=== PATIENT | female | born 1990 | race African-American/Black ===

== ENCOUNTER 2016-05-24 07:58 | Inpatient (IN) | payer BC ==
[~2016-05-24] VITALS: Ht 172.7 cm; Wt 133.9 kg
[2016-05-24] VITALS (7 sets, daily range): BP systolic 119–162; BP diastolic 59–94; PULSE 93–116; RESP 18–27; TEMP 97.8–98.6; O2SAT 97–100
[2016-05-24 08:42] LABS: AUTOMATED NEUTROPHIL # 12.7 TH/MM3 (1.8-7.7); BASOPHIL # 0.1 TH/MM3 (0-0.2); BASOPHIL % 0.5 % (0.0-2.0); EOSINOPHIL % 0.1 % (0.0-4.0); HEMATOCRIT 44.3 % (35.0-46.0); HEMO FLAGS DIFF FINAL; LYMPH % 16.1 % (9.0-44.0); LYMPHOCYTE # 2.6 TH/MM3 (1.0-4.8); MEAN CORPUSCULAR HEMOGLOBIN 28.1 PG (27.0-34.0); MEAN CORPUSCULAR HGB CONC 31.9 % (32.0-36.0); MONO % 4.5 % (0.0-8.0); NEUT % 78.8 % (16.0-70.0); PLATELET COUNT 459 TH/MM3 (150-450); RED BLOOD COUNT 5.03 MIL/MM3 (4.00-5.30); RED CELL DISTRIBUTION WIDTH 13.7 % (11.6-17.2); WHITE BLOOD COUNT 16.1 TH/MM3 (4.0-11.0)
[2016-05-24 08:54] LABS: BLOOD, URINE NEG (NEG); GLUCOSE,URINE 1000 mg/dL (NEG); KETONE, URINE 150 mg/dL (NEG); NITRITE,URINE NEG (NEG); SQUAMOUS EPITHELIAL CELL URINE <1 /hpf (0-5)
[2016-05-24 08:55] LABS: COMMENT (UR) CULT NOT INDICATED; CULTURE IF INDICATED CULT NOT INDICATED; URINE COLOR LIGHT-YELLOW (YELLW/STRAW)
[2016-05-24] MEDS ORDERED: DEXT 5%-NACL 0.9% 1000 ML INJ 1,000 ML IV SCH (08:57)
[2016-05-24] MEDS ORDERED: SODIUM CHLOR 0.9% 1000 ML INJ 1,000 ML IV SCH (08:57)
[2016-05-24] MEDS ORDERED: INSULIN HUMAN REGULAR 1,000 UNITS/10 ML VIAL IV PUSH ONE (09:00)
[2016-05-24] MEDS ORDERED: POTASSIUM CHLOR 20 MEQ PREMIX 100 ML IV PRN ×3 (09:00)
[2016-05-24] MEDS ORDERED: SODIUM CHLOR 0.9% 1000 ML INJ 1,000 ML IV ONE (09:00)
[2016-05-24] MEDS ORDERED: SODIUM BICARBONATE 8.4% SOLN 50 MEQ/50 ML VIAL IV PRN ×2 (09:00)
[2016-05-24] MEDS ORDERED: SODIUM PHOSPHATE INJ 15 MMOL in SODIUM CHLORIDE 0.9% INJ 100 ML IV PRN (09:00)
[2016-05-24 09:05] LABS: BETA-HYDROXYBUTYRATE 5.91 MMOL/L (0.00-0.39); BICARBONATE 10.6 MEQ/L (21.0-32.0); POTASSIUM 4.8 MEQ/L (3.5-5.1)
--- NOTE | 2016-05-24 09:20 | PD ---
HPI Chief Complaint: GI Complaint Time Seen by Provider: 08:50 Travel History International Travel<30 days: No Contact w/Intl Traveler<30days: No Traveled to known affect area: No History of Present Illness HPI This is a 25-year-old female with a history of type 1 insulin-dependent diabetes , and presents today with complaints of intractable nausea vomiting since yesterday. The patient states she ran out of her insolent 2 days ago. She states shortly thereafter she began having acute nausea vomiting. She denies any fevers, chills. 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 Patient is complaining of being thirsty. The patient states she was admitted in [place] last month for 3 days for DKA. FORMERLY [facility] Past Medical History High Cholesterol: Yes Diabetes: Yes Patient Takes Glucophage: No Hypertension: Yes ?: Unknown Past Surgical History Surgical History: No Previous Surgery Social History Alcohol Use: No Tobacco Use: No Substance Use: No Allergies-Medications (Allergen,Severity, Reaction): Coded Allergies: Amoxicillin (Verified Allergy, Unknown, 05/24/16) Reported Meds & Prescriptions Reported Meds & Active Scripts Active Review of Systems Except as stated in HPI: all other systems reviewed are Neg General / Constitutional: No: Fever, Chills Eyes: Positive: Blurred Vision, No: Diploplia HENT: Positive: Headaches (mild), Lightheadedness Cardiovascular: No: Chest Pain or Discomfort, Palpitations Respiratory: No: Cough, Shortness of Breath Gastrointestinal: Positive: Nausea, Vomiting, Abdominal Pain (cramping), No: Diarrhea Genitourinary: Positive: Frequency, No: Dysuria Musculoskeletal: Positive: Weakness (generalized) Neurologic: Positive: Weakness, Dizziness, Headache (mild), No: Change in Mentation Endocrine: Positive: Polyuria, Other (increased thirst) Physical Exam Narrative GENERAL: Well-developed well-nourished female who is actively vomiting when I entered the room. SKIN: Focused skin assessment warm/dry. HEAD: Atraumatic. Normocephalic. EYES: No scleral icterus. No injection or drainage. ENT: No nasal bleeding or discharge. Mucous membranes pink and moist. NECK: Trachea midline. Supple CARDIOVASCULAR: Tachycardic with 3/6 systolic murmur heard at the left sternal border. RESPIRATORY: No accessory muscle use. Clear to auscultation. Breath sounds equal bilaterally. GASTROINTESTINAL: Abdomen soft, non-tender, nondistended. Obese. MUSCULOSKELETAL: No obvious deformities. No cyanosis. No edema. NEUROLOGICAL: Awake and alert. No obvious cranial nerve deficits. Motor grossly within normal limits. Normal speech. Data Data Last Documented VS Orders Blood Glucose (05/24/16 08:07) Urinalysis - C+S If Indicated (05/24/16 08:07) Electrocardiogram (05/24/16 ) Complete Blood Count With Diff (05/24/16 08:07) Basic Metabolic Panel (Bmp) (05/24/16 08:07) Beta Hydroxybutyrate (Acetone) (05/24/16 08:07) Lactic Acid (05/24/16 08:07) Sodium Chlor 0.9% 1000 Ml Inj (Ns 1000 M (05/24/16 09:00) ^ Insulin Infusion (05/24/16 08:57) Diet Npo (05/24/16 Breakfast) Sodium Chlor 0.9% 1000 Ml Inj (Ns 1000 M (05/24/16 08:57) Dext 5%-Nacl 0.9% 1000 Ml Inj (D5w-Ns 10 (05/24/16 08:57) Insulin Human Regular Inj (Novolin R Inj (05/24/16 09:00) Insulin Regular (Iv Infusion) (Novolin R (05/24/16 09:00) Potassium Chlor 20 Meq Premix (Kcl 20 Me (05/24/16 09:00) Potassium Chlor 20 Meq Premix (Kcl 20 Me (05/24/16 09:00) Potassium Chlor 20 Meq Premix (Kcl 20 Me (05/24/16 09:00) Potassium Chlor 20 Meq Premix (Kcl 20 Me (05/24/16 09:00) Sodium Bicarbonate 8.4% Inj (Sodium Bica (05/24/16 09:00) Sodium Bicarbonate 8.4% Inj (Sodium Bica (05/24/16 09:00) Sodium Phosphate Inj (Sodium Phosphate I (05/24/16 09:00) Hemoglobin (Hgb) A1c (05/24/16 08:57) Basic Metabolic Panel (Bmp) (05/24/16 13:57) Basic Metabolic Panel (Bmp) (05/24/16 19:57) Basic Metabolic Panel (Bmp) (05/25/16 01:57) Basic Metabolic Panel (Bmp) (05/25/16 07:57) Magnesium (Mg) (05/24/16 13:57) Magnesium (Mg) (05/24/16 19:57) Magnesium (Mg) (05/25/16 01:57) Magnesium (Mg) (05/25/16 07:57) Phosphorus (Po4) (05/24/16 13:57) Phosphorus (Po4) (05/24/16 19:57) Phosphorus (Po4) (05/25/16 01:57) Phosphorus (Po4) (05/25/16 07:57) Beta Hydroxybutyrate (Acetone) (05/24/16 19:57) Beta Hydroxybutyrate (Acetone) (05/25/16 07:57) Admit Order (Ed Use Only) (05/24/16 09:46) Labs MDM Medical Decision Making Medical Screen Exam Complete: Yes Emergency Medical Condition: Yes Medical Record Reviewed: No (there are no old records to evaluate. This appears to be the patient's first visit) Differential Diagnosis DKA versus nonketotic hyperosmolar acidosis versus metabolic drainage. Narrative Course This is a 25-year-old female who presents with nausea vomiting 2 days. The patient reports that she has been out of her insolent for 2 days. The patient is in obvious DKA. DKA protocol was initiated. The case was discussed with Dr. Burks, on-call support analyst, who is agreed to admit the patient under his service. The patient was requesting to drink liquids which I told her we would hold off until we got her sugar normalized. She was amenable to the plan. Diagnosis Primary Impression: Diabetic ketoacidosis Additional Impression: Diabetes mellitus type I Admitting Information Admitting Physician Requests: Admit Garrett Angel MD May 24, 2016 09:20 Mean Platelet Volume 8.6 FL Neutrophils (%) (Auto) 78.8 % Lymphocytes (%) (Auto) 16.1 % Monocytes (%) (Auto) 4.5 % Eosinophils (%) (Auto) 0.1 % Basophils (%) (Auto) 0.5 % Neutrophils # (Auto) 12.7 TH/MM3 Lymphocytes # (Auto) 2.6 TH/MM3 Monocytes # (Auto) 0.7 TH/MM3 Eosinophils # (Auto) 0.0 TH/MM3 Basophils # (Auto) 0.1 TH/MM3 CBC Comment DIFF FINAL Differential Comment Urine Color LIGHT-YELLOW Urine Turbidity CLEAR Urine pH 5.0 Urine Specific [place] 1.024 Urine Protein NEG mg/dL Urine Glucose (UA) 1000 mg/dL Urine Ketones 150 mg/dL Urine Occult Blood NEG Urine Nitrite NEG Urine Bilirubin NEG Urine Urobilinogen LESS THAN 2.0 MG/DL Urine Leukocyte Esterase NEG Urine WBC LESS THAN 1 /hpf Urine Squamous Epithelial <1 /hpf Cells Microscopic Urinalysis Comment CULT NOT INDICATED Sodium Level 131 MEQ/L Potassium Level 4.8 MEQ/L Chloride Level 99 MEQ/L Carbon Dioxide Level 10.6 MEQ/L Anion Gap 21 MEQ/L Blood Urea Nitrogen 15 MG/DL Creatinine 1.10 MG/DL Estimat Glomerular Filtration 61 ML/MIN Rate Random Glucose 700 MG/DL Calcium Level 9.7 MG/DL B-Hydroxybutyrate 5.91 MMOL/L MDM Medical Decision Making Medical Screen Exam Complete: Yes Emergency Medical Condition: Yes Medical Record Reviewed: No (there are no old records to evaluate. This appears to be the patient's first visit) Differential Diagnosis DKA versus nonketotic hyperosmolar acidosis versus metabolic drainage. Garrett Angel MD May 24, 2016 09:20
[2016-05-24] MEDS: POTASSIUM CHLOR 20 MEQ PREMIX 100 ML IV PRN ×2 (09:30→10:27)
[2016-05-24] MEDS ORDERED: HYDROmorphone HCL PF 1 MG/ML VIAL IVS ONE (10:45)
[2016-05-24] MEDS ORDERED: ONDANSETRON HCL 4 MG/2 ML VIAL IVP ONE (10:45)
[2016-05-24] MEDS: INSULIN REGULAR (IV INFUSION) 100 UNITS in SODIUM CHLORIDE 0.9% INJ 99 ML IV SCH ×2 (11:22→19:35)
[2016-05-24 13:58] LABS: BICARBONATE 14.4 MEQ/L (21.0-32.0); MAGNESIUM 2.6 MG/DL (1.5-2.5); POTASSIUM 4.6 MEQ/L (3.5-5.1)
[2016-05-24] MEDS ORDERED: CHLORHEXIDINE GLUCONATE 2 % 1 PACK (2 CLOTHS) TOP PRN (14:00)
[2016-05-24] MEDS ORDERED: MISCELLANEOUS NURSING INFORMATION XX SCH (14:00)
--- NOTE | 2016-05-24 15:01 | MH ---
cc: ISRAEL MENG M.D. DATE OF ADMISSION: 05/24/2016 DATE OF : 1990 HISTORY OF PRESENT ILLNESS The patient is a 25-year-old with a history of type 1 diabetes mellitus diagnosed one year ago on Levemir and NovoLog insulin at home. She presented to [facility] ED with complaints of intractable nausea and vomiting. In addition, she reports polyuria, polydipsia and feeling light-headed. She ran out of her medications and the last time she took insulin was a couple of days ago. She was recently discharged from hospital after she was admitted for DKA. She denies any symptoms of fever, chills, cough or any constitutional symptoms. On arrival to the ED she was tachycardic with a heart rate of 116, blood pressure 162/80 and her laboratory data was compatible with DKA. Her blood sugar was 700 on a BMP. In addition the patient had an anion gap of 21 and beta-hydroxybutyrate of 5.91. She was given Novolin regular insulin 14 units IV push and one liter bolus of normal saline, and started on an insulin drip per protocol. A repeat BMP from 1300 showed improvement with blood sugar of 379 and anion gap 17. The patient is awake and alert, lying in bed in no acute respiratory distress. She is on room air oxygen with saturation 98%. PAST MEDICAL HISTORY Type 1 diabetes mellitus diagnosed one year ago. PAST SURGICAL HISTORY Tooth extraction. ALLERGIES AMOXICILLIN; SIDE EFFECTS INCLUDE SKIN SHEDDING. SOCIAL HISTORY Non-smoker, non-drinker. FAMILY HISTORY Diabetes mellitus and hypertension run in the family. MEDICATIONS Reported medications are Novolin and Levemir insulin. REVIEW OF SYSTEMS As per HPI. The rest of the review of systems is unremarkable. PHYSICAL EXAMINATION GENERAL: A 25-year-old female lying in bed in no acute distress. VITAL SIGNS: Temperature 97.9, pulse 103, blood pressure 127/59, respiratory rate 18. Saturation 98% on room air. HEENT: Atraumatic, normocephalic. Pupils equal, round and reactive to light and accommodation. Extraocular muscles intact. Conjunctiva pink. Non-icteric sclera. Oral mucosa within normal. NECK: Supple. No JVD, adenopathy or thyromegaly. Trachea midline. CARDIOVASCULAR: Tachycardic. Normal S1, S2. No murmurs, rubs or gallops noted. PULMONARY: Bilateral equal entry. No rales or wheezing. ABDOMEN: Soft, obese, nontender, no distention. Positive bowel sounds. EXTREMITIES: No clubbing, cyanosis or edema. NEUROLOGIC: No focal sensory deficits. LABORATORY DATA Sodium 141, potassium 4.1, chloride 110, CO2 14, BUN 14, creatinine 0.96, anion gap 17, glucose 379, magnesium 2.6, phosphorous 2.7, calcium 9.2, WBC 16.1, hemoglobin 14, hematocrit 44, platelet count 459. Beta-hydroxybutyrate 5.91. Urinalysis negative for leukocyte esterase, negative for nitrite. IMPRESSION 1. Diabetic ketoacidosis. 2. Anion gap metabolic acidosis. 3. Mild lactic acidemia. 4. Leukocytosis, likely stress-related. 5. History of diabetes mellitus. 6. Morbid obesity. RECOMMENDATIONS 1. Monitor neuro status. The patient is awake and alert. 2. Oxygen p.r.n. to maintain sats above 92%. 3. Will obtain a baseline chest x-ray. 4. Monitor heart rate and blood pressure and maintain MAP greater than 65 mmHg. 5. Recheck lactic acid level and continue with IV hydration. 6. Monitor renal function and electrolytes closely. Will check a BMP, magnesium and phosphorus q.6h., and beta-hydroxybutyrate q.12h. per protocol. 7. Continue with IV fluids. The patient is currently on NS at 250 mL an hour. Once her blood sugar is less than 250 will start D5 NS at 200 an hour per protocol. 8. Keep n.p.o. for now. 9. Monitor CBC and for signs of infections which include fever and WBC. 10.Continue with insulin drip per DKA protocol. 11.No indications for GI prophylaxis. 12.DVT prophylaxis with SCDs and heparin subcu. 13.Further recommendations will be based on the hospital course. Level 4. MD ANDRES Alvares/GABE /2:20 PM /2:48 PM
--- NOTE | 2016-05-24 16:46 | RADRPT ---
EXAM DATE/TIME: 05/24/2016 14:26 [place] COMPARISON: No previous studies available for comparison. INDICATIONS : Patient had high blood sugar level this morning. MEDICAL HISTORY : Diabetes mellitus type II. SURGICAL HISTORY : None. ENCOUNTER: Initial ACUITY: 1 day PAIN SCORE: 0/10 LOCATION: Bilateral chest FINDINGS: Single AP view of the chest. The lungs are clear. Cardiomediastinal silhouette within normal limits. No evidence of pleural effusion or pneumothorax. CONCLUSION: No acute cardiopulmonary disease identified. Raul Hurley MD on May 24, 2016 at 16:44 Board Certified Radiologist. This report was verified electronically.
[2016-05-24 17:05] LABS: BETA HCG QUANT LESS THAN 1 MIU/ML (0-5)
[2016-05-24] MEDS: HEPARIN SODIUM - SQ 10,000 UNITS/ML VIAL SQ SCH (17:07)
[2016-05-24 18:08] LABS: BICARBONATE 20.6 MEQ/L (21.0-32.0); POTASSIUM 4.1 MEQ/L (3.5-5.1)
[2016-05-24] MEDS ORDERED: GLUCAGON 1 MG/ML VIAL OTHER PRN ×4 (19:00)
[2016-05-24] MEDS ORDERED: DEXTROSE 50% IN WATER 50 ML VIAL(D50) IV PUSH PRN ×4 (19:00)
[2016-05-24] MEDS ORDERED: DC previous DKA orders (HMC 1917) XX ONE (19:00)
[2016-05-24] MEDS: INSULIN DETEMIR 100 UNITS/ML VIAL SQ SCH (19:30)
[2016-05-24] MEDS: INSULIN NovoLIN REGULAR SUPPLEMENTAL SCALE SQ SCH (21:00)
[2016-05-24 21:19] LABS: ANION GAP 12 MEQ/L (5-15); BETA-HYDROXYBUTYRATE 2.98 MMOL/L (0.00-0.39); BICARBONATE 20.1 MEQ/L (21.0-32.0); BLOOD UREA NITROGEN 9 MG/DL (7-18); CHLORIDE 114 MEQ/L (98-107); GLOMERULAR FILTRATION RATE 88 ML/MIN (>89); MAGNESIUM 2.4 MG/DL (1.5-2.5); POTASSIUM 3.6 MEQ/L (3.5-5.1); SODIUM (NA) 146 MEQ/L (136-145)
[2016-05-24] MEDS ORDERED: DC Insulin drip 2 hrs post basal insulin dose XX ONE (21:30)
[2016-05-24 22:09] LABS: HEMOGLOBIN A1a 1.3 %; HEMOGLOBIN A1b 1.6 %; HEMOGLOBIN Ao 73.7 %; HEMOGLOBIN F 2.2 %; HEMOGLOBIN LA1C 2.2 %; HEMOGLOBIN P3 5.9 %
--- NOTE | 2016-05-24 22:43 | EKG ---
Date Performed: 05/24/2016 Time Performed: 09:26:06 PTAGE: 25 years EKG: SINUS TACHYCARDIA POSSIBLE LEFT ATRIAL ENLARGEMENT ABNORMAL RHYTHM ECG NO PREVIOUS TRACING DOCTOR: Richard Garcia Interpretating Date/Time 05/24/2016 22:42:33
[2016-05-25] VITALS (12 sets, daily range): BP systolic 109–133; BP diastolic 55–96; PULSE 82–100; RESP 15–24; TEMP 98.3–98.9; O2SAT 96–100
[2016-05-25 02:02] LABS: BICARBONATE 16.2 MEQ/L (21.0-32.0); MAGNESIUM 2.1 MG/DL (1.5-2.5); POTASSIUM 4.2 MEQ/L (3.5-5.1)
[2016-05-25] MEDS: CHLORHEXIDINE GLUCONATE 2 % 1 PACK (2 CLOTHS) TOP SCH (04:00)
[2016-05-25 04:28] LABS: AUTOMATED NEUTROPHIL # 11.6 TH/MM3 (1.8-7.7); BASOPHIL # 0.1 TH/MM3 (0-0.2); BASOPHIL % 0.5 % (0.0-2.0); EOSINOPHIL % 0.2 % (0.0-4.0); HEMATOCRIT 38.7 % (35.0-46.0); HEMO FLAGS DIFF FINAL; LYMPH % 23.1 % (9.0-44.0); LYMPHOCYTE # 3.8 TH/MM3 (1.0-4.8); MEAN CELL VOLUME 85.6 FL (80.0-100.0); MEAN CORPUSCULAR HEMOGLOBIN 27.3 PG (27.0-34.0); MEAN CORPUSCULAR HGB CONC 31.9 % (32.0-36.0); MONO % 6.7 % (0.0-8.0); NEUT % 69.5 % (16.0-70.0); PLATELET COUNT 358 TH/MM3 (150-450); RED BLOOD COUNT 4.52 MIL/MM3 (4.00-5.30); RED CELL DISTRIBUTION WIDTH 13.7 % (11.6-17.2); WHITE BLOOD COUNT 16.6 TH/MM3 (4.0-11.0)
[2016-05-25 04:48] LABS: BICARBONATE 16.8 MEQ/L (21.0-32.0); POTASSIUM 3.9 MEQ/L (3.5-5.1)
[2016-05-25] MEDS: HEPARIN SODIUM - SQ 10,000 UNITS/ML VIAL SQ SCH ×2 (05:21→18:11)
[2016-05-25] MEDS: INSULIN NovoLIN REGULAR SUPPLEMENTAL SCALE SQ SCH (05:22)
[2016-05-25] MEDS ORDERED: GLUCAGON 1 MG/ML VIAL OTHER PRN (06:00)
[2016-05-25] MEDS ORDERED: DEXTROSE 50% IN WATER 50 ML VIAL(D50) IV PUSH PRN (06:00)
[2016-05-25] MEDS: MEDIUM DOSE INSULIN NOVOLIN REGULAR SUPPLEMENTAL SCALE SQ SCH ×4 (08:00→20:00)
[2016-05-25] MEDS: INSULIN DETEMIR 100 UNITS/ML VIAL SQ SCH ×2 (08:08→21:33)
[2016-05-25 10:26] LABS: BETA-HYDROXYBUTYRATE 1.83 MMOL/L (0.00-0.39); BICARBONATE 18.6 MEQ/L (21.0-32.0)
[2016-05-25] MEDS ORDERED: ICU - POTASSIUM PHOSPHATE MONOBASIC 500 MG TAB PO PRN (13:15)
[2016-05-25] MEDS ORDERED: ICU - SODIUM PHOSPHATE 30 MMOL/NS 250 ML IV PRN ×2 (13:15)
[2016-05-25] MEDS ORDERED: ICU - MAGNESIUM SULFATE 2 GM/NS 100 ML IV PRN ×2 (13:15)
[2016-05-25] MEDS ORDERED: ICU - POTASSIUM CHLORIDE/AQUEOUS SOLN 40 MEQ/100 ML IVPB IV PRN (13:15)
[2016-05-25] MEDS ORDERED: ICU - MAGNESIUM SULFATE 4 GM/NS 100 ML IV PRN ×2 (13:15)
[2016-05-25] MEDS ORDERED: ICU - POTASSIUM PHOSPHATE 30 MMOL/NS 250 ML IV PRN ×2 (13:15)
[2016-05-25] MEDS ORDERED: ICU - MAGNESIUM OXIDE 400 MG TAB PO PRN (13:15)
--- NOTE | 2016-05-25 13:28 | HHI.CCPN ---
Subjective Remarks/Hospital Course The patient is a 25-year-old with a history of type 1 diabetes mellitus diagnosed one year ago on Levemir, NovoLog and the toes at home she presented to [facility] ED with complaints of intractable nausea and vomiting. In addition she reports polyuria, polydipsia and feeling lightheaded. She ran out of her medications in the last time she took insulin was a couple of days ago. She was recently discharged from the hospital after she was admitted for DKA. She denies any symptomatology of fevers chills or cough or any constitutional symptoms. On arrival to the ED she was tachycardic with a heart rate of 116, blood pressure 162/80 and her laboratory data was compatible with DKA. Her blood sugar was 700 on the MR PE. In addition the patient had an anion gap of 21 and a beta hydroxybutyrate of 5.91. She was given normal and regular insulin 14 units IV push and a 1 L bolus of normal saline is started on insulin drip per protocol. Repeat BMP from 1300 showed improvement with blood sugar of 379 and anion gap of 17. The patient is awake and alert lying in the bed no acute respiratory distress. On room air she is in no apparent distress. Subjective 05/25/2016-The patient is in no apparent distress the patient had been advanced to Levemir 20 units daily will alternate that with twice a day coverage and resume her home medications. The patient is currently tolerating a by mouth diet, and anion gap has closed. Objective Vital Signs Date Time Temp Pulse Resp B/P Pulse Ox O2 Delivery O2 Flow Rate FiO2 05/25/16 08:00 87 05/25/16 08:00 98.7 15 121/56 97 05/24/16 12:44 Room Air Intake and Output 05/24/16 05/24/16 05/25/16 08:00 16:00 00:00 Intake Total 630 ml Balance 630 ml Result Diagram: 05/25/16 0306 05/25/16 0822 Imaging Last Impressions Chest X-Ray 05/24/16 0000 Signed Impressions: Service Date/Time: Tuesday, May 24, 2016 14:26 - CONCLUSION: No acute cardiopulmonary disease identified. Raul Hurley MD Objective Remarks GENERAL: Morbidly obese young female resting comfortably in no apparent respiratory distress SKIN: Warm and dry. HEAD: Atraumatic. Normocephalic. EYES: Pupils equal and round. No scleral icterus. No injection or drainage. ENT: No nasal bleeding or discharge. Mucous membranes pink and moist. Uvula midline NECK: Trachea midline. Unable to assess JVD, secondary to body habitus. CARDIOVASCULAR: Normal rate, regular rhythm. No murmurs rubs or gallops RESPIRATORY: No accessory muscle use. Clear to auscultation. Breath sounds equal bilaterally. GASTROINTESTINAL: Abdomen soft, non-tender, nondistended. No guarding. MUSCULOSKELETAL: Extremities without clubbing, cyanosis, or edema. No obvious deformities. NEUROLOGICAL: Awake and alert. RASS 0. No gross focal/sensory deficits. Follows commands in all 4 extremities. A/P Assessment and Plan Plan by systems: Neurologic: Noncompliance to medication regimen Respiratory: No acute issues Incentive spirometry Cardiovascular: Tachycardia-resolved Maintain MAP greater than 65 mmHg Renal: No acute issues Monitor BMP -- Strict I/Os FEN/GI: Nausea and vomiting-resolved Morbid obesity Hypokalemia Hypophosphatemia Replete electrolytes per ICU protocol Diabetic diet Heme/ID: Monitor CBC Endocrine: DKA-resolved Type 1 diabetes mellitus Patient counseled on importance of adherence medication regimen Currently on Levemir 20 mg daily with sliding scale insulin every 4 hours, will increase Levemir to 20 mg twice a day -- SSI Prophylaxis: GI Prophylaxis Protonix DVT Prophylaxis -- SCDs Lines: Peripheral IVs 2. Central line if indicated Dispo: Level 2 Plan transfer to hospitalist, plan transfer to floor. Physician Keisha Castaneda MD May 25, 2016 13:28
[2016-05-25] MEDS ORDERED: VICT18IN SQ (18:22)
[2016-05-25] MEDS ORDERED: LEVEMIR SQ (18:22)
[2016-05-25] MEDS ORDERED: LISI-515 PO (18:22)
[2016-05-25] MEDS ORDERED: SIMV20TA PO (18:22)
[2016-05-25] MEDS ORDERED: NOVOLOGP2 SQ ×2 (18:22)
[2016-05-25] MEDS ORDERED: HYDR1SOL3 PO (18:24)
[2016-05-26] VITALS (8 sets, daily range): BP systolic 102–134; BP diastolic 57–84; PULSE 72–85; RESP 14–22; TEMP 97.8–98.7; O2SAT 85–100
[2016-05-26] MEDS: CHLORHEXIDINE GLUCONATE 2 % 1 PACK (2 CLOTHS) TOP SCH (04:00)
[2016-05-26] MEDS: MEDIUM DOSE INSULIN NOVOLIN REGULAR SUPPLEMENTAL SCALE SQ SCH ×5 (04:00→20:00)
[2016-05-26] MEDS: HEPARIN SODIUM - SQ 10,000 UNITS/ML VIAL SQ SCH ×2 (06:45→18:00)
[2016-05-26] MEDS: INSULIN DETEMIR 100 UNITS/ML VIAL SQ SCH ×2 (09:02→20:18)
[2016-05-26] MEDS ORDERED: INSULIN DETEMIR 100 UNITS/ML VIAL SQ ONE ×2 (09:30→15:30)
--- NOTE | 2016-05-26 10:20 | HHI.PR ---
Subjective Remarks Change Control Manager Notes: The patient is a 25-year-old with a history of type 1 diabetes mellitus diagnosed one year ago on Levemir, NovoLog and the toes at home she presented to [facility] ED with complaints of intractable nausea and vomiting. In addition she reports polyuria, polydipsia and feeling lightheaded. She ran out of her medications in the last time she took insulin was a couple of days ago. She was recently discharged from the hospital after she was admitted for DKA. She denies any symptomatology of fevers chills or cough or any constitutional symptoms. On arrival to the ED she was tachycardic with a heart rate of 116, blood pressure 162/80 and her laboratory data was compatible with DKA. Her blood sugar was 700 on the MR PE. In addition the patient had an anion gap of 21 and a beta hydroxybutyrate of 5.91. She was given normal and regular insulin 14 units IV push and a 1 L bolus of normal saline is started on insulin drip per protocol. Repeat BMP from 1300 showed improvement with blood sugar of 379 and anion gap of 17. The patient is awake and alert lying in the bed no acute respiratory distress. On room air she is in no apparent distress. Subjective 05/25/2016-The patient is in no apparent distress the patient had been advanced to Levemir 20 units daily will alternate that with twice a day coverage and resume her home medications. The patient is currently tolerating a by mouth diet, and anion gap has closed. Hospitalist Note: 05/26/2016- Seen in her bedroom early in am discussed with nurse Miss Khadra Urias. patient stable increased dose of Levemir initially to 40 units BID then given 30 units more in the afternoon her blood sugar is uncontrolled over 300. No nausea, vomit or diarrhea. Objective Vital Signs Date Time Temp Pulse Resp B/P Pulse Ox O2 Delivery O2 Flow Rate FiO2 05/26/16 06:00 78 05/26/16 04:00 80 05/26/16 04:00 97.8 77 15 134/77 100 05/26/16 02:00 77 05/26/16 00:00 72 05/26/16 00:00 98.0 85 22 133/84 85 05/25/16 22:00 87 05/25/16 20:00 98.3 87 19 124/78 99 05/25/16 18:00 100 05/25/16 16:00 98.7 85 19 123/57 99 05/25/16 16:00 85 05/25/16 14:00 98 05/25/16 12:00 98.7 82 21 109/55 100 I/O 05/25/16 05/25/16 05/25/16 05/26/16 05/26/16 05/26/16 07:00 15:00 23:00 07:00 15:00 23:00 Intake Total 480 ml 1300 ml 350 ml 350 ml Output Total 1000 ml 1100 ml 1 ml Balance 480 ml 300 ml -750 ml 349 ml Intake Oral 480 ml 1300 ml 350 ml 350 ml IV Total 0 ml Output Urine Total 1000 ml 1100 ml Stool Total 1 ml # Voids 1 2 1 # Bowel Movements 1 0 0 Result Diagram: 05/25/16 0306 05/25/16 0822 Imaging Last Impressions Chest X-Ray 05/24/16 0000 Signed Impressions: Service Date/Time: Tuesday, May 24, 2016 14:26 - CONCLUSION: No acute cardiopulmonary disease identified. Raul Hurley MD Procedures No procedures performed. Other Results Laboratory Tests Test 05/24/16 05/24/16 05/24/16 05/24/16 08:20 13:05 14:28 15:00 Urine Color LIGHT-YELLOW Urine Turbidity CLEAR Urine pH 5.0 Urine Specific [place] 1.024 Urine Protein NEG mg/dL Urine Glucose (UA) 1000 mg/dL Urine Ketones 150 mg/dL Urine Occult Blood NEG Urine Nitrite NEG Urine Bilirubin NEG Urine Urobilinogen LESS THAN 2.0 MG/DL Urine Leukocyte Esterase NEG Urine WBC LESS THAN 1 /hpf Urine Squamous Epithelial <1 /hpf Cells Microscopic Urinalysis Comment CULT NOT INDICATED Human Chorionic Gonadotropin, LESS THAN 1 Quant MIU/ML Lactic Acid Level 2.2 mmol/L Nasal Screen MRSA (PCR) NEGATIVE Test 05/24/16 05/25/16 05/25/16 05/25/16 20:24 03:06 08:22 22:16 Hemoglobin A1c 13.0 % White Blood Count 16.6 TH/MM3 Red Blood Count 4.52 MIL/MM3 Hemoglobin 12.4 GM/DL Hematocrit 38.7 % Mean Corpuscular Volume 85.6 FL Mean Corpuscular Hemoglobin 27.3 PG Mean Corpuscular Hemoglobin 31.9 % Concent Red Cell Distribution Width 13.7 % Platelet Count 358 TH/MM3 Mean Platelet Volume 8.5 FL Neutrophils (%) (Auto) 69.5 % Lymphocytes (%) (Auto) 23.1 % Monocytes (%) (Auto) 6.7 % Eosinophils (%) (Auto) 0.2 % Basophils (%) (Auto) 0.5 % Neutrophils # (Auto) 11.6 TH/MM3 Lymphocytes # (Auto) 3.8 TH/MM3 Monocytes # (Auto) 1.1 TH/MM3 Eosinophils # (Auto) 0.0 TH/MM3 Basophils # (Auto) 0.1 TH/MM3 CBC Comment DIFF FINAL Differential Comment Sodium Level 140 MEQ/L Potassium Level 4.0 MEQ/L Chloride Level 110 MEQ/L Carbon Dioxide Level 18.6 MEQ/L Anion Gap 11 MEQ/L Blood Urea Nitrogen 7 MG/DL Creatinine 1.03 MG/DL Estimat Glomerular Filtration 79 ML/MIN Rate Random Glucose 288 MG/DL Calcium Level 8.7 MG/DL Magnesium Level 2.0 MG/DL B-Hydroxybutyrate 1.83 MMOL/L Phosphorus Level 2.5 MG/DL Objective Remarks GENERAL: Morbidly obese patient, no acute distress. SKIN: Warm and dry. HEAD: Atraumatic. Normocephalic. EYES: Pupils equal and round. No scleral icterus. No injection or drainage. ENT: No nasal bleeding or discharge. Mucous membranes pink and moist. Uvula midline NECK: Trachea midline. Unable to assess JVD, secondary to body habitus. CARDIOVASCULAR: Normal rate, regular rhythm. No murmurs rubs or gallops RESPIRATORY: No accessory muscle use. Clear to auscultation. Breath sounds equal bilaterally. GASTROINTESTINAL: Abdomen soft, non-tender, nondistended. No guarding. MUSCULOSKELETAL: Extremities without clubbing, cyanosis, or edema. No obvious deformities. NEUROLOGICAL: Awake and alert and oriented x 3. Medications and IVs Current Medications Medications (Trade) Dose Ordered Sig/[place] Route Start Time Stop Time Status Last Admin (Heparin Inj) 5,000 units Q12H SQ 05/24/16 18:00 05/26/16 06:45 Miscellaneous Information 1 Q361D XX 05/24/16 14:00 (Chlorhexidine 2% Cloth) 3 pack Taper DAILY@04 TOP 05/25/16 04:00 05/21/17 03:59 05/26/16 04:00 (Chlorhexidine 2% Cloth) 3 pack UNSCH PRN TOP 05/24/16 14:00 (D50w (Vial) Inj) 25 ml UNSCH PRN IV PUSH 05/25/16 06:00 (Glucagon Inj) 1 mg UNSCH PRN OTHER 05/25/16 06:00 Insulin Human Regular 1 1 Q4HR SQ 05/25/16 08:00 05/26/16 08:00 Potassium Chloride 100 ml @ 25 mls/hr UNSCH PRN IV 05/25/16 13:15 Potassium Chloride 100 ml @ 50 mls/hr UNSCH PRN IV 05/25/16 13:15 Magnesium Sulfate 4 gm/Sodium Chloride 108 ml @ 54 mls/hr UNSCH PRN IV 05/25/16 13:15 (Magnesium Sulfate Inj/NS Inj) 104 ml @ 52 mls/hr UNSCH PRN IV 05/25/16 13:15 Magnesium Oxide 800 mg 800 mg UNSCH PRN PO 05/25/16 13:15 (Sodium Phosphate Inj/NS 250 ml Inj) 260 ml @ 43.333 mls/ hr UNSCH PRN IV 05/25/16 13:15 Potassium Phosphate 2000 mg 2,000 mg UNSCH PRN PO 05/25/16 13:15 05/25/16 18:29 (Potassium Phosphate Inj/NS 250 ml Inj) 260 ml @ 43.333 mls/ hr UNSCH PRN IV 05/25/16 13:15 (Prinivil) 20 mg DAILY PO 05/27/16 09:00 (Pravachol) 40 mg HS PO 05/26/16 21:00 A/P Assessment and Plan 1. DKA secondary to medical non compliance, status post IV fluids and Insulin drip given Anion gap normalized, within normal limits electrolytes, she uses Levemir 70 units twice a day when she uses it, today increased her dose but not yet controlled her blood sugar. 2. Severe non medical compliant. 3. Intractable Nausea and vomit resolved 4. Morbid Obesity strongly recommended diet and exercise, weight loss warranted. 5. Electrolyte derangement replaced and following. 6. DM I continue to increase slowly to her home dose of medicines, due to that the patient was not using Insulin at home. continue sliding scale and Levemir. Prophylaxis: GI Prophylaxis Protonix DVT Prophylaxis -- SCDs Discussed with Patient and Nurse miss Khadra appreciated. Discharge Planning Expected later today or in am tomorrow. Anshu Garcia MD May 26, 2016 10:20 Currently on Levemir 20 mg daily with sliding scale insulin every 4 hours, will increase Levemir to 20 mg twice a day -- SSI Prophylaxis: GI Prophylaxis Protonix DVT Prophylaxis -- SCDs Anshu Garcia MD May 26, 2016 10:20
[2016-05-26] MEDS: PRAVASTATIN SOD 40 MG TAB PO SCH (20:17)
[2016-05-27] VITALS (7 sets, daily range): BP systolic 111–148; BP diastolic 64–97; PULSE 65–80; RESP 12–20; TEMP 96.7–98.3; O2SAT 96–100
[2016-05-27] MEDS: CHLORHEXIDINE GLUCONATE 2 % 1 PACK (2 CLOTHS) TOP SCH (04:00)
[2016-05-27] MEDS: MEDIUM DOSE INSULIN NOVOLIN REGULAR SUPPLEMENTAL SCALE SQ SCH ×7 (04:00→23:25)
[2016-05-27 04:51] LABS: BICARBONATE 25.6 MEQ/L (21.0-32.0); MAGNESIUM 1.8 MG/DL (1.5-2.5); POTASSIUM 3.2 MEQ/L (3.5-5.1)
[2016-05-27] MEDS: HEPARIN SODIUM - SQ 10,000 UNITS/ML VIAL SQ SCH ×2 (05:24→18:48)
[2016-05-27] MEDS: ICU - POTASSIUM CHLORIDE/AQUEOUS SOLN 20 MEQ/100 ML IVPB IV PRN ×2 (05:24→13:59)
--- NOTE | 2016-05-27 08:12 | HHI.PR ---
Subjective Remarks Design Transferrer Notes: The patient is a 25-year-old with a history of type 1 diabetes mellitus diagnosed one year ago on Levemir, NovoLog and the toes at home she presented to [facility] ED with complaints of intractable nausea and vomiting. In addition she reports polyuria, polydipsia and feeling lightheaded. She ran out of her medications in the last time she took insulin was a couple of days ago. She was recently discharged from the hospital after she was admitted for DKA. She denies any symptomatology of fevers chills or cough or any constitutional symptoms. On arrival to the ED she was tachycardic with a heart rate of 116, blood pressure 162/80 and her laboratory data was compatible with DKA. Her blood sugar was 700 on the MR PE. In addition the patient had an anion gap of 21 and a beta hydroxybutyrate of 5.91. She was given normal and regular insulin 14 units IV push and a 1 L bolus of normal saline is started on insulin drip per protocol. Repeat BMP from 1300 showed improvement with blood sugar of 379 and anion gap of 17. The patient is awake and alert lying in the bed no acute respiratory distress. On room air she is in no apparent distress. Subjective 05/25/2016-The patient is in no apparent distress the patient had been advanced to Levemir 20 units daily will alternate that with twice a day coverage and resume her home medications. The patient is currently tolerating a by mouth diet, and anion gap has closed. Hospitalist Note: 05/26/2016- Seen in her bedroom early in am discussed with nurse Miss Gaviria Appreciated. patient stable increased dose of Levemir initially to 40 units BID then given 30 units more in the afternoon her blood sugar is uncontrolled over 300. No nausea, vomit or diarrhea. 05/27/2016 Seen in the presence of nurse Miss Gaviria her blood sugar in am was 165 done by BMP then was 69 by nurse, at this time taken again is 135 will replace electrolytes and Discharge later today. Objective Vital Signs Date Time Temp Pulse Resp B/P Pulse Ox O2 Delivery O2 Flow Rate FiO2 05/27/16 04:00 65 05/27/16 04:00 98.3 65 16 05/27/16 00:00 97.7 78 20 148/76 05/27/16 00:00 78 05/26/16 20:00 82 05/26/16 20:00 98.7 82 20 114/78 05/26/16 15:59 98.4 05/26/16 12:00 98.2 73 14 102/57 100 I/O 05/26/16 05/26/16 05/26/16 05/27/16 05/27/16 05/27/16 07:00 15:00 23:00 07:00 15:00 23:00 Intake Total 350 ml 1220 ml 200 ml Output Total 1 ml Balance 349 ml 1220 ml 200 ml Intake Oral 350 ml 1220 ml 200 ml IV Total 0 ml 0 ml Stool Total 1 ml # Voids 1 4 2 # Bowel Movements 0 0 Result Diagram: 05/25/16 0306 05/27/16 0336 Imaging Last Impressions Chest X-Ray 05/24/16 0000 Signed Impressions: Service Date/Time: Tuesday, May 24, 2016 14:26 - CONCLUSION: No acute cardiopulmonary disease identified. Raul Hurley MD Procedures No procedures performed. Other Results Laboratory Tests Test 05/24/16 05/24/16 05/24/16 05/24/16 08:20 13:05 14:28 15:00 Urine Color LIGHT-YELLOW Urine Turbidity CLEAR Urine pH 5.0 Urine Specific [place] 1.024 Urine Protein NEG mg/dL Urine Glucose (UA) 1000 mg/dL Urine Ketones 150 mg/dL Urine Occult Blood NEG Urine Nitrite NEG Urine Bilirubin NEG Urine Urobilinogen LESS THAN 2.0 MG/DL Urine Leukocyte Esterase NEG Urine WBC LESS THAN 1 /hpf Urine Squamous Epithelial <1 /hpf Cells Microscopic Urinalysis Comment CULT NOT INDICATED Human Chorionic Gonadotropin, LESS THAN 1 Quant MIU/ML Lactic Acid Level 2.2 mmol/L Nasal Screen MRSA (PCR) NEGATIVE Test 05/24/16 05/25/16 05/25/16 05/27/16 20:24 03:06 08:22 03:36 Hemoglobin A1c 13.0 % White Blood Count 16.6 TH/MM3 Red Blood Count 4.52 MIL/MM3 Hemoglobin 12.4 GM/DL Hematocrit 38.7 % Mean Corpuscular Volume 85.6 FL Mean Corpuscular Hemoglobin 27.3 PG Mean Corpuscular Hemoglobin 31.9 % Concent Red Cell Distribution Width 13.7 % Platelet Count 358 TH/MM3 Mean Platelet Volume 8.5 FL Neutrophils (%) (Auto) 69.5 % Lymphocytes (%) (Auto) 23.1 % Monocytes (%) (Auto) 6.7 % Eosinophils (%) (Auto) 0.2 % Basophils (%) (Auto) 0.5 % Neutrophils # (Auto) 11.6 TH/MM3 Lymphocytes # (Auto) 3.8 TH/MM3 Monocytes # (Auto) 1.1 TH/MM3 Eosinophils # (Auto) 0.0 TH/MM3 Basophils # (Auto) 0.1 TH/MM3 CBC Comment DIFF FINAL Differential Comment B-Hydroxybutyrate 1.83 MMOL/L Sodium Level 140 MEQ/L Potassium Level 3.2 MEQ/L Chloride Level 105 MEQ/L Carbon Dioxide Level 25.6 MEQ/L Anion Gap 9 MEQ/L Blood Urea Nitrogen 9 MG/DL Creatinine 0.69 MG/DL Estimat Glomerular Filtration 125 ML/MIN Rate Random Glucose 165 MG/DL Calcium Level 9.0 MG/DL Phosphorus Level 2.6 MG/DL Magnesium Level 1.8 MG/DL Objective Remarks GENERAL: Morbidly obese patient, no acute distress. SKIN: Warm and dry. HEAD: Atraumatic. Normocephalic. EYES: Pupils equal and round. No scleral icterus. No injection or drainage. ENT: No nasal bleeding or discharge. Mucous membranes pink and moist. Uvula midline NECK: Trachea midline. Unable to assess JVD, secondary to body habitus. CARDIOVASCULAR: Normal rate, regular rhythm. No murmurs rubs or gallops RESPIRATORY: No accessory muscle use. Clear to auscultation. Breath sounds equal bilaterally. GASTROINTESTINAL: Abdomen soft, non-tender, nondistended. No guarding. MUSCULOSKELETAL: Extremities without clubbing, cyanosis, or edema. No obvious deformities. NEUROLOGICAL: Awake and alert and oriented x 3. Medications and IVs Current Medications Medications (Trade) Dose Ordered Sig/Rico Route Start Time Stop Time Status Last Admin (Heparin Inj) 5,000 units Q12H SQ 05/24/16 18:00 05/27/16 05:24 Miscellaneous Information 1 Q361D XX 05/24/16 14:00 (Chlorhexidine 2% Cloth) 3 pack Taper DAILY@04 TOP 05/25/16 04:00 05/21/17 03:59 05/26/16 04:00 (Chlorhexidine 2% Cloth) 3 pack UNSCH PRN TOP 05/24/16 14:00 (D50w (Vial) Inj) 25 ml UNSCH PRN IV PUSH 05/25/16 06:00 (Glucagon Inj) 1 mg UNSCH PRN OTHER 05/25/16 06:00 Insulin Human Regular 1 1 Q4HR SQ 05/25/16 08:00 05/27/16 00:00 Potassium Chloride 100 ml @ 25 mls/hr UNSCH PRN IV 05/25/16 13:15 Potassium Chloride 100 ml @ 50 mls/hr UNSCH PRN IV 05/25/16 13:15 05/27/16 05:24 Magnesium Sulfate 4 gm/Sodium Chloride 108 ml @ 54 mls/hr UNSCH PRN IV 05/25/16 13:15 (Magnesium Sulfate Inj/NS Inj) 104 ml @ 52 mls/hr UNSCH PRN IV 05/25/16 13:15 Magnesium Oxide 800 mg 800 mg UNSCH PRN PO 05/25/16 13:15 (Sodium Phosphate Inj/NS 250 ml Inj) 260 ml @ 43.333 mls/ hr UNSCH PRN IV 05/25/16 13:15 Potassium Phosphate 2000 mg 2,000 mg UNSCH PRN PO 05/25/16 13:15 05/25/16 18:29 (Potassium Phosphate Inj/NS 250 ml Inj) 260 ml @ 43.333 mls/ hr UNSCH PRN IV 05/25/16 13:15 (Prinivil) 20 mg DAILY PO 05/27/16 09:00 (Pravachol) 40 mg HS PO 05/26/16 21:00 05/26/16 20:17 Insulin Detemir 40 units 40 units BID SQ 05/26/16 21:00 05/26/16 20:18 (Magnesium Sulfate 1 Gm Premix) 100 ml @ 100 mls/hr Q1H IV 05/27/16 08:30 05/27/16 10:29 A/P Assessment and Plan 1. DKA secondary to medical non compliance, status post IV fluids and Insulin drip given Anion gap normalized, new Electrolytes gave Potassium 3.2 giving replacement at this time also Magnesium was 1.8 given 2 grams of Magnesium Sulfate. 2. Severe non medical compliant Patient counseled. 3. Intractable Nausea and vomit resolved 4. Morbid Obesity strongly recommended diet and exercise, weight loss warranted. 5. Electrolyte derangement replaced and following. 6. DM I poorly controlled. Hemoglobin A1C 13. Prophylaxis: GI Prophylaxis Protonix DVT Prophylaxis -- SCDs Discussed with Patient and Nurse Khadra sona. Discharge Planning Expected later today or in am tomorrow. Anshu Garcia MD May 27, 2016 08:12
[2016-05-27] MEDS: LISINOPRIL 20 MG TAB PO SCH (09:42)
[2016-05-27] MEDS: INSULIN DETEMIR 100 UNITS/ML VIAL SQ SCH ×2 (09:42→21:12)
[2016-05-27] MEDS: MAGNESIUM SULFATE 1 GM PREMIX 100 ML IV SCH ×2 (17:10→18:53)
[2016-05-27] MEDS: PRAVASTATIN SOD 40 MG TAB PO SCH (21:00)
[2016-05-28] VITALS: BP 136/94; PULSE 82; RESP 19; TEMP 96.5; O2SAT 98
[2016-05-28] MEDS: CHLORHEXIDINE GLUCONATE 2 % 1 PACK (2 CLOTHS) TOP SCH (03:29)
[2016-05-28] MEDS: MEDIUM DOSE INSULIN NOVOLIN REGULAR SUPPLEMENTAL SCALE SQ SCH ×3 (03:29→12:18)
[2016-05-28 03:30] VITALS: BP 118/88; PULSE 75; RESP 15; TEMP 98.1; O2SAT 99
[2016-05-28] MEDS: HEPARIN SODIUM - SQ 10,000 UNITS/ML VIAL SQ SCH (05:06)
[2016-05-28 08:00] VITALS: BP 116/70; PULSE 81; RESP 16; TEMP 97.5; O2SAT 99
[2016-05-28] MEDS: INSULIN DETEMIR 100 UNITS/ML VIAL SQ SCH (08:56)
[2016-05-28] MEDS: LISINOPRIL 20 MG TAB PO SCH (08:56)
--- NOTE | 2016-05-28 09:20 | HHI.PR ---
Subjective Remarks Manager Field Sales Notes: The patient is a 25-year-old with a history of type 1 diabetes mellitus diagnosed one year ago on Levemir, NovoLog and the toes at home she presented to [facility] ED with complaints of intractable nausea and vomiting. In addition she reports polyuria, polydipsia and feeling lightheaded. She ran out of her medications in the last time she took insulin was a couple of days ago. She was recently discharged from the hospital after she was admitted for DKA. She denies any symptomatology of fevers chills or cough or any constitutional symptoms. On arrival to the ED she was tachycardic with a heart rate of 116, blood pressure 162/80 and her laboratory data was compatible with DKA. Her blood sugar was 700 on the MR PE. In addition the patient had an anion gap of 21 and a beta hydroxybutyrate of 5.91. She was given normal and regular insulin 14 units IV push and a 1 L bolus of normal saline is started on insulin drip per protocol. Repeat BMP from 1300 showed improvement with blood sugar of 379 and anion gap of 17. The patient is awake and alert lying in the bed no acute respiratory distress. On room air she is in no apparent distress. Subjective 05/25/2016-The patient is in no apparent distress the patient had been advanced to Levemir 20 units daily will alternate that with twice a day coverage and resume her home medications. The patient is currently tolerating a by mouth diet, and anion gap has closed. Hospitalist Note: 05/26/2016- Seen in her bedroom early in am discussed with nurse Miss Gaviria Appreciated. patient stable increased dose of Levemir initially to 40 units BID then given 30 units more in the afternoon her blood sugar is uncontrolled over 300. No nausea, vomit or diarrhea. 05/27/2016 Seen in the presence of nurse Miss Gaviria her blood sugar in am was 165 done by BMP then was 69 by nurse, at this time taken again is 135 will replace electrolytes and Discharge later today. 05/28/2016 Patient seen in her bedroom, discussed with nurse Miss Kirby appreciated, no new issues, no nausea, vomit or diarrhea, okay to discharge home her blood sugar has better control. Objective Vital Signs Date Time Temp Pulse Resp B/P Pulse Ox O2 Delivery O2 Flow Rate FiO2 05/28/16 03:30 98.1 75 15 118/88 99 4/1/17 00:00 96.5 82 19 136/94 98 05/27/16 21:00 80 05/27/16 20:00 96.7 80 18 140/97 100 05/27/16 16:00 98.2 72 12 145/95 98 05/27/16 12:00 97.7 75 12 111/64 96 I/O 05/27/16 05/27/16 05/27/16 05/28/16 05/28/16 05/28/16 07:00 15:00 23:00 07:00 15:00 23:00 Intake Total 200 ml 480 ml 720 ml Balance 200 ml 480 ml 720 ml Intake Oral 200 ml 480 ml 720 ml # Voids 2 4 3 # Bowel Movements 0 1 Result Diagram: 05/25/16 0306 05/27/16 1743 Imaging Last Impressions Chest X-Ray 05/24/16 0000 Signed Impressions: Service Date/Time: Tuesday, May 24, 2016 14:26 - CONCLUSION: No acute cardiopulmonary disease identified. Raul Hurley MD Procedures No procedures performed. Other Results Laboratory Tests Test 05/24/16 05/24/16 05/24/16 05/24/16 08:20 13:05 14:28 15:00 Urine Color LIGHT-YELLOW Urine Turbidity CLEAR Urine pH 5.0 Urine Specific [place] 1.024 Urine Protein NEG mg/dL Urine Glucose (UA) 1000 mg/dL Urine Ketones 150 mg/dL Urine Occult Blood NEG Urine Nitrite NEG Urine Bilirubin NEG Urine Urobilinogen LESS THAN 2.0 MG/DL Urine Leukocyte Esterase NEG Urine WBC LESS THAN 1 /hpf Urine Squamous Epithelial <1 /hpf Cells Microscopic Urinalysis Comment CULT NOT INDICATED Human Chorionic Gonadotropin, LESS THAN 1 Quant MIU/ML Lactic Acid Level 2.2 mmol/L Nasal Screen MRSA (PCR) NEGATIVE Test 05/24/16 05/25/16 05/25/16 05/27/16 20:24 03:06 08:22 03:36 Hemoglobin A1c 13.0 % White Blood Count 16.6 TH/MM3 Red Blood Count 4.52 MIL/MM3 Hemoglobin 12.4 GM/DL Hematocrit 38.7 % Mean Corpuscular Volume 85.6 FL Mean Corpuscular Hemoglobin 27.3 PG Mean Corpuscular Hemoglobin 31.9 % Concent Red Cell Distribution Width 13.7 % Platelet Count 358 TH/MM3 Mean Platelet Volume 8.5 FL Neutrophils (%) (Auto) 69.5 % Lymphocytes (%) (Auto) 23.1 % Monocytes (%) (Auto) 6.7 % Eosinophils (%) (Auto) 0.2 % Basophils (%) (Auto) 0.5 % Neutrophils # (Auto) 11.6 TH/MM3 Lymphocytes # (Auto) 3.8 TH/MM3 Monocytes # (Auto) 1.1 TH/MM3 Eosinophils # (Auto) 0.0 TH/MM3 Basophils # (Auto) 0.1 TH/MM3 CBC Comment DIFF FINAL Differential Comment B-Hydroxybutyrate 1.83 MMOL/L Sodium Level 140 MEQ/L Chloride Level 105 MEQ/L Carbon Dioxide Level 25.6 MEQ/L Anion Gap 9 MEQ/L Blood Urea Nitrogen 9 MG/DL Creatinine 0.69 MG/DL Estimat Glomerular Filtration 125 ML/MIN Rate Random Glucose 165 MG/DL Calcium Level 9.0 MG/DL Phosphorus Level 2.6 MG/DL Magnesium Level 1.8 MG/DL Test 05/27/16 17:43 Potassium Level 3.9 MEQ/L Objective Remarks GENERAL: Morbidly obese patient, no acute distress. SKIN: Warm and dry. HEAD: Atraumatic. Normocephalic. EYES: Pupils equal and round. No scleral icterus. No injection or drainage. ENT: No nasal bleeding or discharge. Mucous membranes pink and moist. Uvula midline NECK: Trachea midline. Unable to assess JVD, secondary to body habitus. CARDIOVASCULAR: Normal rate, regular rhythm. No murmurs rubs or gallops RESPIRATORY: No accessory muscle use. Clear to auscultation. Breath sounds equal bilaterally. GASTROINTESTINAL: Abdomen soft, non-tender, nondistended. No guarding. MUSCULOSKELETAL: Extremities without clubbing, cyanosis, or edema. No obvious deformities. NEUROLOGICAL: Awake and alert and oriented x 3. Medications and IVs Current Medications Medications (Trade) Dose Ordered Sig/Rico Route Start Time Stop Time Status Last Admin (Heparin Inj) 5,000 units Q12H SQ 05/24/16 18:00 05/27/16 18:48 Miscellaneous Information 1 Q361D XX 05/24/16 14:00 (Chlorhexidine 2% Cloth) 3 pack Taper DAILY@04 TOP 05/25/16 04:00 05/21/17 03:59 05/26/16 04:00 (Chlorhexidine 2% Cloth) 3 pack UNSCH PRN TOP 05/24/16 14:00 (D50w (Vial) Inj) 25 ml UNSCH PRN IV PUSH 05/25/16 06:00 (Glucagon Inj) 1 mg UNSCH PRN OTHER 05/25/16 06:00 Insulin Human Regular 1 1 Q4HR SQ 05/25/16 08:00 05/28/16 08:56 Potassium Chloride 100 ml @ 25 mls/hr UNSCH PRN IV 05/25/16 13:15 Potassium Chloride 100 ml @ 50 mls/hr UNSCH PRN IV 05/25/16 13:15 05/27/16 13:59 Magnesium Sulfate 4 gm/Sodium Chloride 108 ml @ 54 mls/hr UNSCH PRN IV 05/25/16 13:15 (Magnesium Sulfate Inj/NS Inj) 104 ml @ 52 mls/hr UNSCH PRN IV 05/25/16 13:15 Magnesium Oxide 800 mg 800 mg UNSCH PRN PO 05/25/16 13:15 (Sodium Phosphate Inj/NS 250 ml Inj) 260 ml @ 43.333 mls/ hr UNSCH PRN IV 05/25/16 13:15 Potassium Phosphate 2000 mg 2,000 mg UNSCH PRN PO 05/25/16 13:15 05/25/16 18:29 (Potassium Phosphate Inj/NS 250 ml Inj) 260 ml @ 43.333 mls/ hr UNSCH PRN IV 05/25/16 13:15 (Prinivil) 20 mg DAILY PO 05/27/16 09:00 05/28/16 08:56 (Pravachol) 40 mg HS PO 05/26/16 21:00 05/27/16 21:00 (Levemir Inj) 50 units BID SQ 05/27/16 21:00 05/28/16 08:56 A/P Assessment and Plan 1. DKA secondary to medical non compliance, status post IV fluids and Insulin drip given Anion gap normalized, new Electrolytes gave Potassium 3.2 giving replacement at this time also Magnesium was 1.8 given 2 grams of Magnesium Sulfate. Improved 2. Severe non medical compliant Patient counseled. 3. Intractable Nausea and vomit resolved 4. Morbid Obesity strongly recommended diet and exercise, weight loss warranted. 5. Electrolyte derangement replaced and following. 6. DM I poorly controlled. Hemoglobin A1C 13. now better control will continue Home regimen on discharge Initially discussed with her to go on 48 units but she is non compliant with Diet or exercise, so she will need to titrate up her Insulin due to non exercise and non diabetic Diet at home, all this topics were discussed with the patient on daily bases but today I explained everything in detail I asked her if she understand what I say and she states yes she knows how to handle her Insulin, but is not taking it, Nurse Miss Kirby present with me in the room at all times while I was in the room. Prophylaxis: GI Prophylaxis Protonix DVT Prophylaxis -- SCDs Discussed with Patient and Nurse miss Kirby all questions answered and full Diabetes Education given Discharge Planning Discharge Home. Anshu Garcia MD May 28, 2016 09:20
--- NOTE | 2016-05-28 09:25 | HHI.DS ---
Discharge Summary Admission Date May 24, 2016 at 09:52 Discharge Date: May 28, 2016 Admitting Diagnosis Diabetic ketoacidosis, medication non-compliance (1) Diabetic ketoacidosis ICD Code: E13.10 Diagnosis: Principal (2) Diabetes mellitus type I ICD Code: E10.9 Diagnosis: Principal (3) Non-compliant patient ICD Code: Z91.19 Diagnosis: Principal Procedures No procedures performed to the patient Brief History - From Admission The patient is a 25-year-old with a history of type 1 diabetes mellitus diagnosed one year ago on Levemir and NovoLog insulin at home. She presented to [facility] ED with complaints of intractable nausea and vomiting. In addition, she reports polyuria, polydipsia and feeling light-headed. She ran out of her medications and the last time she took insulin was a couple of days ago. She was recently discharged from hospital after she was admitted for DKA. She denies any symptoms of fever, chills, cough or any constitutional symptoms. On arrival to the ED she was tachycardic with a heart rate of 116, blood pressure 162/80 and her laboratory data was compatible with DKA. Her blood sugar was 700 on a BMP. In addition the patient had an anion gap of 21 and beta-hydroxybutyrate of 5.91. She was given Novolin regular insulin 14 units IV push and one liter bolus of normal saline, and started on an insulin drip per protocol. A repeat BMP from 1300 showed improvement with blood sugar of 379 and anion gap 17. The patient is awake and alert, lying in bed in no acute respiratory distress. She is on room air oxygen with saturation 98%. CBC/BMP: 05/25/16 0306 05/27/16 1743 Significant Findings Laboratory Tests Test 05/27/16 03:36 Potassium Level 3.2 MEQ/L (3.5-5.1) Random Glucose 165 MG/DL (74-106) Imaging Last Impressions Chest X-Ray 05/24/16 0000 Signed Impressions: Service Date/Time: Tuesday, May 24, 2016 14:26 - CONCLUSION: No acute cardiopulmonary disease identified. Raul Hurley MD PE at Discharge GENERAL: Morbidly obese patient, no acute distress. SKIN: Warm and dry. HEAD: Atraumatic. Normocephalic. EYES: Pupils equal and round. No scleral icterus. No injection or drainage. ENT: No nasal bleeding or discharge. Mucous membranes pink and moist. Uvula midline NECK: Trachea midline. Unable to assess JVD, secondary to body habitus. CARDIOVASCULAR: Normal rate, regular rhythm. No murmurs rubs or gallops RESPIRATORY: No accessory muscle use. Clear to auscultation. Breath sounds equal bilaterally. GASTROINTESTINAL: Abdomen soft, non-tender, nondistended. No guarding. MUSCULOSKELETAL: Extremities without clubbing, cyanosis, or edema. No obvious deformities. NEUROLOGICAL: Awake and alert and oriented x 3. Hospital Course Counter Hand Notes: The patient is a 25-year-old with a history of type 1 diabetes mellitus diagnosed one year ago on Levemir, NovoLog and the toes at home she presented to [facility] ED with complaints of intractable nausea and vomiting. In addition she reports polyuria, polydipsia and feeling lightheaded. She ran out of her medications in the last time she took insulin was a couple of days ago. She was recently discharged from the hospital after she was admitted for DKA. She denies any symptomatology of fevers chills or cough or any constitutional symptoms. On arrival to the ED she was tachycardic with a heart rate of 116, blood pressure 162/80 and her laboratory data was compatible with DKA. Her blood sugar was 700 on the MR PE. In addition the patient had an anion gap of 21 and a beta hydroxybutyrate of 5.91. She was given normal and regular insulin 14 units IV push and a 1 L bolus of normal saline is started on insulin drip per protocol. Repeat BMP from 1300 showed improvement with blood sugar of 379 and anion gap of 17. The patient is awake and alert lying in the bed no acute respiratory distress. On room air she is in no apparent distress. Subjective 05/25/2016-The patient is in no apparent distress the patient had been advanced to Levemir 20 units daily will alternate that with twice a day coverage and resume her home medications. The patient is currently tolerating a by mouth diet, and anion gap has closed. Hospitalist Note: 05/26/2016- Seen in her bedroom early in am discussed with nurse Miss Gaviria Appreciated. patient stable increased dose of Levemir initially to 40 units BID then given 30 units more in the afternoon her blood sugar is uncontrolled over 300. No nausea, vomit or diarrhea. 05/27/2016 Seen in the presence of nurse Miss Gaviria her blood sugar in am was 165 done by BMP then was 69 by nurse, at this time taken again is 135 will replace electrolytes and Discharge later today. 05/28/2016 Patient seen in her bedroom, discussed with nurse Miss Kirby appreciated, no new issues, no nausea, vomit or diarrhea, okay to discharge home her blood sugar has better control. Assessment and Plan 1. DKA secondary to medical non compliance, status post IV fluids and Insulin drip given Anion gap normalized, new Electrolytes gave Potassium 3.2 giving replacement at this time also Magnesium was 1.8 given 2 grams of Magnesium Sulfate. Improved 2. Severe non medical compliant Patient counseled. 3. Intractable Nausea and vomit resolved 4. Morbid Obesity strongly recommended diet and exercise, weight loss warranted. 5. Electrolyte derangement replaced and following. 6. DM I poorly controlled. Hemoglobin A1C 13. now better control will continue Home regimen on discharge Initially discussed with her to go on 48 units but she is non compliant with Diet or exercise, so she will need to titrate up her Insulin due to non exercise and non diabetic Diet at home, all this topics were discussed with the patient on daily bases but today I explained everything in detail I asked her if she understand what I say and she states yes she knows how to handle her Insulin, but is not taking it, Nurse Miss Kirby present with me in the room at all times while I was in the room. Prophylaxis: GI Prophylaxis Protonix DVT Prophylaxis -- SCDs Discussed with Patient and Nurse miss Kirby all questions answered and full Diabetes Education given Discharge Planning Discharge Home. Pt Condition on Discharge: Good Discharge Disposition: Discharge Home Discharge Time: > 30 minutes Discharge Instructions DIET: Follow Instructions for: Diabetic Diet Activities you can perform: Regular-No Restrictions Anshu Garcia MD May 28, 2016 09:25
== END 2016-05-28 13:05 | disposition home or self-care (01) | DRG 638 ==
LOC: NEPE 07:58 → NEDA 09:52 → HIMN 15:00 → HOCA 05-27 08:13
PROVIDERS: ADMIT Internal Medicine; ATTEND Internal Medicine
DX: E10.10 Type 1 diabetes mellitus with ketoacidosis without coma (principal); Z68.41 Body mass index [BMI] 40.0-44.9, adult; E66.01 Morbid (severe) obesity due to excess calories; R00.0 Tachycardia, unspecified; E87.6 Hypokalemia; E83.39 Other disorders of phosphorus metabolism; Z79.4 Long term (current) use of insulin; Z82.49 Family history of ischemic heart disease and other diseases of the circulatory system; Z88.1 Allergy status to other antibiotic agents; Z83.3 Family history of diabetes mellitus; Z91.14 Patient's other noncompliance with medication regimen; Z91.19 Patient's noncompliance with other medical treatment and regimen
CPT/HCPCS: 71010; 80048; 81001; 82010; 82948; 83036; 83605; 83735; 84100; 84132; 84702; 85025; 87641; 93005; 96365; 96374; 96375; J1170; J1644; J1815; J1817; J2405; J3475; J3480; J7030